=== PATIENT | male | born 1975 | race Caucasian/White ===

== ENCOUNTER 2016-10-09 17:54 | Emergency (ER) | payer BC ==
[2016-10-09 19:38] VITALS: BP 145/103; PULSE 59; RESP 14; TEMP 98.4; O2SAT 97
--- NOTE | 2016-10-09 19:55 | UCPHY ---
H & P Time Seen by Provider: 10/09/16 19:43 Patient Type: New HPI/ROS: This patient presents because he thinks he might have strep. Both his daughter and and has been diagnosed within the last 2 days with strep and he is concerned he might have it as well. Symptoms include a subjective fever with sweats and chills, hoarseness mild sore throat headache and nausea. He has some aching in the back of his neck and upper back but does not have generalized myalgias although he does have a headache. He denies abdominal pain , vomiting or diarrhea. REVIEW OF SYSTEMS: Constitutional: Subjective fever, malaise Eyes: No complaints ENT: Nasal congestion, mild sore throat, hoarseness Respiratory: No cough, no shortness of breath Cardiac: No chest pain Gastrointestinal: Nausea but no abdominal pain, vomiting or diarrhea Genitourinary: Not addressed Musculoskeletal: Neck and upper back stiffness Skin: No rash Neurological: Headache Smoking Status: Never smoked Physical Exam: GENERAL: Well-appearing, well-nourished and in no acute distress. HEAD: Atraumatic, normocephalic. EYES: sclera anicteric, conjunctiva are normal. ENT: TMs normal, nares patent, oropharynx clear without exudates. Moist mucous membranes. NECK: Normal range of motion, supple without lymphadenopathy or JVD. Nontender LUNGS: Breath sounds clear to auscultation bilaterally and equal. No wheezes rales or rhonchi. HEART: Regular rate and rhythm Extremities: Full range of motion NEUROLOGICAL: Cranial nerves II through XII grossly intact. Normal speech, normal gait. PSYCH: Normal mood, normal affect. SKIN: Warm, dry, normal turgor, no visible rashes or lesions. Constitutional: Initial Vital Signs Temperature (C) 36.9 C 10/09/16 19:33 Heart Rate 59 L 10/09/16 19:33 Respiratory Rate 14 10/09/16 19:33 Blood Pressure 145/103 H 10/09/16 19:33 O2 Sat (%) 97 10/09/16 19:33 O2 Delivery Mode Room Air Allergies/Adverse Reactions: No Known Allergies Allergy (Verified 10/09/16 19:45) Home Medications: Medication Instructions Recorded NK [No Known Home Meds] 10/09/16 Medical Decision Making Differential Diagnosis: Because of this patient's symptoms is probably viral since his rapid strep screen and throat exam are both normal. Antibiotics are not indicated at this time. - Data Points Laboratory Results: 10/09/16 10/09/16 Unknown 19:30 Group A Strep Screen NEGATIVE (NEGATIVE) Group A Strep DNA Pending Departure - Departure Disposition: Home, Routine, Self-Care Clinical Impression: Upper respiratory infection Qualifiers: URI type: unspecified URI Qualified Code(s): J06.9 - Acute upper respiratory infection, unspecified Condition: Good Instructions: Upper Respiratory Infection (ED) Additional Instructions: If your symptoms have not improved in 4 or 5 days or if they have not resolved in a week you should be re-evaluated. If you feel that your symptoms are worsening you should be seen sooner. Adult Pain & Fever Control: We recommend Acetaminophen (Tylenol) and Ibuprofen (Motrin, Advil) for pain and fever control. When fever is high or pain severe, both drugs can be used at the same time, but at different intervals. Please note the time differences. Your dose is: Acetaminophen [650]mg every 4 to 6 hours ibuprofen [600]mg every [6] hours with food OR naproxen Sodium (Aleve) [440]mg every 12 hours. Note: do not take Acetaminophen with Hydrocodone (Vicodin, Lortab) or Oxycodone (Percocet). These medications also contain Acetaminophen. No more than 3000 mg of Acetaminophen should be taken in 24 hours (for an adult) . The maximal dose of ibuprofen that it is safe in a 24-hour period is 2400 mg. You may take 400 mg every 4 hours, 600 mg every 6 hours or 800 mg every 8 hours safely. Referrals: NONE *PRIMARY CARE P,. [Unknown] - As per Instructions - PQRS PQRS Measurement: Not applicable
== END 2016-10-09 19:58 | disposition home or self-care (01) ==
LOC: CED 17:54
DX: J06.9 Acute upper respiratory infection, unspecified (principal)
CPT/HCPCS: 87880-PO; 99203-PO; G0463-PO